=== PATIENT | female | born 1960 | race Caucasian/White ===

== ENCOUNTER 2021-08-05 13:47 | Emergency (ER) | payer MEDICARE, MEDICAID ==
[~2021-08-05] VITALS: Ht 157.5 cm; Wt 82.0 kg
[2021-08-05 13:55] VITALS: BP 124/77
[2021-08-05] MEDS ORDERED: TOPUD MT (18:07)
== END 2021-08-05 18:37 | disposition home or self-care (01) ==
LOC: ER 13:47
DX: M25.561 Pain in right knee (principal); E11.9 Type 2 diabetes mellitus without complications; Z98.890 Other specified postprocedural states
CPT/HCPCS: 93971; 99284

== ENCOUNTER 2024-04-14 11:08 | Emergency (ER) | payer MEDICARE ==
[~2024-04-14] VITALS: Ht 157.5 cm; Wt 82.0 kg
[~2024-04-14 11:08] MED LIST: TOPUD MT
[2024-04-14 11:11] VITALS: TEMP 98.3; O2SAT 99
[2024-04-14] MEDS: IBUPROFEN 400MG TABLET PO ONE (14:07)
[2024-04-14 16:02] VITALS: BP 133/80; PULSE 76; RESP 18; O2SAT 99
== END 2024-04-14 16:04 | disposition home or self-care (01) ==
LOC: ER 11:30
DX: S09.90XA Unspecified injury of head, initial encounter (principal); M25.512 Pain in left shoulder; M54.9 Dorsalgia, unspecified; R07.89 Other chest pain; E11.9 Type 2 diabetes mellitus without complications; V89.2XXA Person injured in unspecified motor-vehicle accident, traffic, initial encounter; X58.XXXA Exposure to other specified factors, initial encounter; Y93.89 Activity, other specified; Y92.89 Other specified places as the place of occurrence of the external cause; Y99.8 Other external cause status
CPT/HCPCS: 71045; 73030; 93005; 99284